=== PATIENT | female | born 1965 | race African-American/Black ===

== ENCOUNTER 2017-01-08 11:33 | Emergency (ER) | payer BC ==
--- NOTE | ~2017-01-08 | CR72 ---
[facility] A Service of [facility] & [facility] RADIOLOGY TEXT RESULTS PATIENT: MONTSE COLMENARES LOCATION: [facility] : 61 UNIT #: [id number] AGE: [address]: Modesta Dawson MD SEX: F ORDER DR: [id number] [facility] [address]. [place], [place] [address] [id number] E MR#: [id number] #: [id number] NAME: MONTSE COLMENARES : 1965 SEX: F STUDY DATE/TIME: 01/08/2017 13:50 UNIT: [facility] ROOM: STUDY DESCRIPTION: CR Chest Single View Portable Attending Physician: Modesta Dawson M.D. Referring Physician: Marquis Harding Aprn Ordering Physician: Modesta Dawson M.D. Primary Care Physician: Marquis Harding Aprn MEDICAL IMAGING REPORT This report is preliminary unless electronic signature is present EXAM AP portable chest dated 01/08/2017, COMPARISON 03/27/2015 HISTORY Shortness of breath beginning this morning. Bilateral shoulder pain. FINDINGS AP portable view is obtained. The cardiovascular configuration is stable and the lungs are clear. CONCLUSION Negative portable chest. Dictated by... Winston Lugo M.D. THIS IS AN ELECTRONICALLY VERIFIED REPORT Winston Lugo M.D. at 01/11/2017 9:18 AM MATEUS/xenia TD: 01/08/2017 16:06 JOB #: [id number] MEDICAL IMAGING REPORT Page 1 of 1 COPY
--- NOTE | ~2017-01-08 | CO ---
Unit #: [id number] #: [id number] Patient: MONTSE COLMENARES [id number] [address] [place], [place] [address] [id number] E MR#: [id number] NAME: MONTSE COLMENARES ROOM: Age: 51 Sex: F Admission Date: 01/08/2017 : 1965 Attending Physician: Modesta Dawson M.D. Primary Care Physician: Marquis Harding Aprn Consultation Date: 01/08/2017 CONSULTATION REPORT REASON FOR CONSULTATION Shoulder pain. HISTORY OF PRESENT ILLNESS This is a 51-year-old -Polish female with prior medical history of hypertension diagnosed about a year ago and chronic lower back pain. She denies any other medical history. Denies diabetes, high cholesterol, or a family history of premature coronary artery disease. She does smoke half pack per day for greater than 30 years. She presented to the ER with bilateral shoulder and scapular pain. States the pain started earlier in the morning when she returned home from her primary care visit. The pain started in her right shoulder. Described as burning and tingling, 10/10. It progressed into her left shoulder with numbness and tingling in her bilateral fingers and hands. She denies nausea, diaphoresis, or shortness of air with the pain. Denies chest pain, tightness, or pressure. PAST MEDICAL HISTORY 1. Hypertension. 2. Chronic lower back pain. 3. Tobacco abuse. PAST SURGICAL HISTORY 1. Tubal ligation. 2. . 3. Sweat gland surgery. SOCIAL HISTORY One half pack per day smoker x30 years. Drinks three to four beers on the weekends. 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 FAMILY HISTORY Denies a family history of premature coronary artery disease. ALLERGIES No known drug allergies. HOME MEDICATIONS 1. Norvasc 5 mg once a day. 2. Meloxicam. 3. Flexeril. REVIEW OF SYSTEMS Positive for numbness and tingling in her right hand. Otherwise negative except for what was stated in the HPI. Unit #: [id number] #: [id number] Patient: MONTSE COLMENARES PHYSICAL EXAMINATION VITAL SIGNS: Temperature 97.5, heart rate 86, respiratory rate 16, blood pressure 129/92. Height 70 inches, weight 89.8. GENERAL: Alert and oriented x3. A 51-year-old -Polish female in no acute distress. HEENT: Head is atraumatic, normocephalic. Pupils are equal and round. Mucous membranes are moist. NECK: Supple. Trachea is midline. Negative for JVD. LUNGS: Clear to auscultation. Nonlabored respirations. CARDIOVASCULAR: S1, S2. Regular rate and rhythm. No murmurs, rubs, or gallops auscultated. ABDOMEN: Soft, nontender, nondistended. EXTREMITIES: Pulses are palpable. No pedal edema. No cyanosis. NEUROLOGIC: Answers questions appropriately. Moves all extremities equally and follows commands without difficulty. DIAGNOSTIC STUDIES LABORATORY: Sodium 135, potassium 3.5, chloride 103, BUN 14, creatinine 0.6, glucose 96. Hemoglobin 12.8, hematocrit 38.6, white blood cell count 10.2, platelets 308,000. AST 24, ALT 20, alkaline phosphatase 109. PT 10.7, INR 1. Point of care troponin less than 0.05. IMAGING: Chest x-ray: No active disease. CARDIOVASCULAR: EKG shows normal sinus rhythm. ASSESSMENT 1. Probable cervical spine C5-C6 nerve root compression. 2. Hypertension. 3. Nicotine abuse. PLAN 1. Anti-inflammatory medications, continue meloxicam. 2. Smoking cessation. 3. Exercise Cardiolite stress test as an outpatient. 4. Recommend cervical MRI. 5. Patient advised to stay off work until January 12, 2017. Thank you for asking us to see this patient. We appreciate the consult. Dictated by... Nga Sepulveda APRN for Willie Wu M.D. Arcenio TD: 01/09/2017 11:41 JOB #: [id number] Unit #: [id number] #: [id number] Patient: MONTSE COLMENARES CONSULTATION REPORT Page 1 of 1 X X CONSULTATION REPORT
--- NOTE | ~2017-01-08 | EKG ---
PATIENT: MONTSE COLMENARES UNIT #: [id number] Ventricular Rate: 87 BPM Atrial Rate: 87 BPM P-R Interval: 140 ms QRS Duration: 80 ms Q-T Interval: 390 ms QTC Calculation(Bezet): 469 ms P Le Center: 64 degrees Calculated R Le Center: 85 degrees Calculated T Le Center: 30 degrees Diagnosis Line: Normal sinus rhythm Diagnosis Line: Biatrial enlargement Diagnosis Line: Septal infarct , age undetermined Diagnosis Line: Abnormal ECG Diagnosis Line: No previous ECGs available Diagnosis Line: Confirmed by MAX LIU MD ([id number]) on 01/08/2017 Diagnosis Line: 6:58:51 PM INTERPRETING MD: NOE MATHIS
[~2017-01-08 11:33] MED LIST: AZITHROMYCIN250 MG PO; BENADRYL25 M1 PO; DERMACORT1 GM EXT; FLEXERIL10 MG PO; IBUPROFEN800 MG PO; LORTAB 5/500 TA1 TA1 PO; MEDROL DOSEPAK4 MG PO; MOUTHWASH180 ML MM; STERAPRED5 MG/DOSE1 PO; VOLTAREN50 MG PO; VOLTAREN75 MG PO; ZANTAC150 MG PO
[2017-01-08 14:14] LABS: POC - CKMB <1.0 ng/mL (0.0-7.9); POC - TROPONIN <0.05 ng/mL (<=0.05)
[2017-01-08 14:51] LABS: BASOPHIL# 0.1 X10e3 (0-0.3); BASOPHIL% 0.9 % (0-2.5); EOSINOPHIL# 0.1 X10e3 (0-0.7); EOSINOPHIL% 1.2 % (0.0-7.0); HEMATOCRIT 38.6 % (35.0-45.0); HEMOGLOBIN 12.8 gm/dL (12.0-16.0); LYMPHOCYTE# 2.6 X10e3 (1.0-3.5); LYMPHOCYTE% 25.2 % (17.0-45.0); MEAN CELL VOLUME 87.3 FL (83-96); MEAN CORPUSCULAR HGB CONC 33.2 g/dL (30-36); MEAN PLATELET VOLUME 8.3 FL (6.5-11.5); MONOCYTE# 0.7 X10e3 (0-1.0); MONOCYTE% 6.5 % (3.0-12.0); NEUTROPHIL# 6.8 X10e3 (1.5-7.1); NEUTROPHIL% 66.2 % (40-75); PLATELET COUNT 308 X10e3 (140-420); RED BLOOD COUNT 4.42 X10e (3.90-5.30); RED CELL DISTRIBUTION WIDTH 14.4 % (11.0-15.5); WHITE BLOOD COUNT 10.2 X10e3 (4.0-10.5)
[2017-01-08 14:56] LABS: DIFF IND NO
[2017-01-08 15:04] LABS: PROTHROMBIN TIME (PATIENT) 10.7 SECONDS (9.6-11.5)
[2017-01-08 15:14] LABS: ALBUMIN SERUM 4.1 g/dL (3.5-5.0); ALKALINE PHOSPHATASE 109 U/L (32-92); ALT (SGPT) 20 U/L (10-40); AST (SGOT) 24 U/L (10-42); BILIRUBIN,TOTAL 0.4 mg/dL (0.2-2.0); BLOOD UREA NITROGEN 14 mg/dL (9-23); BUN/CREATININE RATIO 23.33; CALCIUM SERUM 8.9 mg/dL (8.4-10.2); CARBON DIOXIDE 22 mmol/L (22-31); CHLORIDE 103 mmol/L (100-111); CREATININE SERUM 0.6 mg/dL (0.6-1.4); GLOM FILT RATE Estimated 120.6 mL/min (>60); GLUCOSE FASTING 96 mg/dL (70-110); POTASSIUM 3.5 mmol/L (3.5-5.1); PROTEIN TOTAL SERUM 8.5 g/dL (6.0-8.3); SODIUM 135 mmol/L (135-145)
[2017-01-08 15:15] LABS: BILIRUBIN, DIRECT <0.1 mg/dL (0.0-0.2); BILIRUBIN,INDIRECT 0.3 mg/dL (0.0-0.9)
[2017-01-08 15:55] LABS: POC - CKMB <1.0 ng/mL (0.0-7.9); POC - TROPONIN <0.05 ng/mL (<=0.05)
== END 2017-01-08 18:34 | disposition home or self-care (01) ==
LOC: CFTX 11:33 → CED 11:33
PROVIDERS: Emergency Medicine
DX: M54.6 Pain in thoracic spine (principal); I10 Essential (primary) hypertension
CPT/HCPCS: 36415; 71010; 80048; 80076; 82553; 84484; 85025; 85610; 93005; 99283

== ENCOUNTER → 2017-01-09 | Outpatient (CLI) | payer BC ==
--- NOTE | ~2017-01-09 | ST ---
Unit #: [id number] #: [id number] Patient: MONTSE COLMENARES [id number] [address] [address] [id number] O MR#: [id number] NAME: MONTSE COLMENARES : 1965 SEX: F STUDY DATE/TIME: 01/09/2017 UNIT: [facility] ROOM: STUDY DESCRIPTION: Attending Physician: Willie Wu M.D. Referring Physician: Willie Wu M.D. Primary Care Physician: Marquis Harding Aprn CARDIOLOGY REPORT EXAM EKG portion of exercise Cardiolite stress test. REASON FOR EXAMINATION Bilateral shoulder pain and numbness. FINDINGS Baseline EKG shows normal sinus rhythm with a rate of 83 beats per minute. PROCEDURE The patient exercised according to Shahriar protocol for 3 minutes and 32 seconds. She achieved a work level of 4.6 METs. Resting heart rate was 83 beats per minute. Maximal heart rate was 146 beats per minute, representing an 87% of age max predicted heart rate. The patient's symptoms were shortness of breath and fatigue. No arrhythmias were noted. The test was stopped due to achieving heart rate. IMPRESSION 1. There were no ST-T wave changes. 2. The patient had shortness of breath and fatigue that resolved in recovery. 3. No arrhythmias. 4. Please correlate with Cardiolite imaging. Dictated by... Pavel Taylor M.D. AM/ TD: 01/09/2017 14:00 JOB #: [id number] Unit #: [id number] #: [id number] Patient: MONTSE COLMENARES CARDIOLOGY REPORT Page 1 of 1 X Chelo Sheth APRN CARDIOLOGY REPORT
--- NOTE | ~2017-01-09 | TH ---
Unit #: [id number] #: [id number] Patient: MONTSE COLMENARES [id number] [facility]. [address] [address] [id number] O MR#: [id number] NAME: MONTSE COLMENARES : 1965 SEX: F STUDY DATE/TIME: 01/09/2017 UNIT: [facility] ROOM: STUDY DESCRIPTION: Exercise stress test - Nuclear Attending Physician: Willie Wu M.D. Referring Physician: Willie Wu M.D. Primary Care Physician: Marquis Harding Aprn CARDIOLOGY REPORT PROCEDURE PERFORMED Exercise Cardiolite stress test - Nuclear portion. PROCEDURE Using technetium 99m-labeled Cardiolite, rest and stress SPECT images were obtained. Multiple SPECT images were obtained in various views, including horizontal and vertical long axis and short axis views of the left ventricle. Images were obtained by gated SPECT method. The patient was administered 9.63 mCi of Cardiolite at rest. The patient was administered 30.3 mCi of Cardiolite at peak exercise. Total exercise time is 3 minutes and 32 seconds. On the stress images, there is a small area of moderately decreased tracer uptake activity in the anteroapical wall. The rest images also show a small area of moderately decreased tracer uptake activity anteroapically. Comparing the rest and stress images, there is a small area of predominantly fixed defect seen anteroapically; cannot rule out infarct versus soft tissue artifact. The left ventricular ejection fraction is calculated to be 74%. There is no focal wall motion abnormality seen. The left ventricular size is small. CONCLUSION 1. There is a small area of predominantly fixed defect seen anteroapically; cannot rule out old infarct versus soft tissue artifact. 2. No obvious stress-induced ischemia noted. 3. The left ventricular ejection fraction is calculated to be 74%. 4. There is no focal wall motion abnormality seen. 5. Technically limited study. It must be noted that the patient exercised for a total of only 3 minutes and 32 seconds. Clinical correlation is requested. Dictated by... Kodak Pierson TD: 01/09/2017 14:42 JOB #: [id number] Unit #: [id number] #: [id number] Patient: MONTSE COLMENARES CARDIOLOGY REPORT Page 1 of 1 X Karley Treviño MD <ELECTRONICALLY SIGNED> 02/21/17 [id number] CARDIOLOGY REPORT
--- NOTE | ~2017-01-09 | MR31 ---
[facility] A Service of [facility] & [facility] RADIOLOGY TEXT RESULTS PATIENT: MONTSE COLMENARES LOCATION: [facility] : 61 UNIT #: [id number] AGE: [address]: Willie Wu MD SEX: F ORDER DR: [id number] [facility] [address] [place], [place] [address] [id number] O MR#: [id number] Acc #: [id number] NAME: MONTSE COLMENARES : 1965 SEX: F STUDY DATE/TIME: 01/09/2017 10:09 UNIT: [facility] ROOM: STUDY DESCRIPTION: MR Cervical WWo Contrast Attending Physician: Willie Wu M.D. Referring Physician: Willie Wu M.D. Ordering Physician: Willie Wu M.D. Primary Care Physician: Marquis Harding Aprn MRI CENTER REPORT This report is preliminary unless electronic signature is present. EXAM MRI of the cervical spine with and without HISTORY Patient experienced neck pain and right arm numbness starting about 10:00 a.m. 01/08/2017 after an earlier doctors visit. The patient was evaluated in the emergency room and MRI of the cervical spine was ordered. Patient has a history of hypertension. There is no history of cancer or trauma. FINDINGS MRI of the cervical spine was performed prior to and following intravenous administration of 18 mL of MultiHance. MultiHance was given secondary to the presence of a cord lesion on the noncontrast imaging. There is no comparison MRI. The prior plain films series from 2009 is pending sikhism. Sagittal alignment is normal. Multilevel intervertebral disc desiccation noted with mild multilevel loss of intervertebral disc height. Also multilevel marrow endplate degenerative change predominantly type 2. There is no Chiari-I malformation. There is a focus of signal abnormality within the cervical cord at the level of C3-4. It is asymmetric to the right side and measures about 3.0 mm AP dimension, 6.0 mm ML dimension and 7.0 mm SI dimension. It is not associated with mass effect or pathologic enhancement. There is also not significant canal stenosis at this level. The lesion is therefore nonspecific. The lack of enhancement or mass effect weighs against an active process, but this could still be a now chronic demyelinating plaque or chronic lesion related to an episode of previous transverse myelitis. A less likely consideration is a low grade glioma. At this time, please correlate further clinically and at minimum I would recommend followup imaging over the long-term with and without contrast to assess for change. First followup study is to be obtained at [address] [facility] A Service of [facility] / [facility] RADIOLOGY TEXT RESULTS PATIENT: MONTSE COLMENARES LOCATION: [facility] : 61 UNIT #: [id number] AGE: [address]: Willie Wu MD SEX: F ORDER DR: At C2-3, minor posterior desiccated disc bulging without canal or foraminal compromise. At C3-4, minor posterior desiccated disc osteophyte complex and uncovertebral osteophyte formation asymmetric to the right. Mild effacement of the anterior thecal sac and [id number] right greater than left sided foraminal narrowing. At C4-5, minor concentric desiccated disc bulge and some right-sided uncovertebral osteophyte formation with [id number] right foraminal narrowing and mild effacement of the anterior thecal sac right of midline. At C5-6, mild concentric desiccated disc osteophyte complex with uncovertebral osteophyte formation more so to the right. Mild effacement of the anterior thecal sac, more so to the right. Approximately moderate foraminal narrowing bilaterally. At C6-7, mild left-sided foraminal narrowing. No canal stenosis. At C7-T1, no significant abnormality. IMPRESSION 1. There is a focus of signal abnormality within the right side of the cord centered at the level of C3-4. It is not associated with mass effect or enhancement. Please refer to the differential discussion above. At this time I would recommend further correlation with clinical findings and course. At minimum, followup imaging is recommended at 6 months with and without contrast reassess for stability. Please refer to the differential in the comment section. 2. There is multilevel disc desiccation and minor endplate spondylosis with some uncovertebral osteophyte formation. Patient. There is no significant canal stenosis but there is multilevel foraminal impingement present. See above. Dictated by... Zohreh Combs M.D. THIS IS AN ELECTRONICALLY VERIFIED REPORT Zohreh Combs M.D. at 01/09/2017 3:28 PM Reynaldo TD: 01/09/2017 14:28 JOB #: [id number] MRI CENTER REPORT Page 1 of 1 COPY
== END | disposition home or self-care (01) ==
LOC: CNUC 09:00 → CCAT 09:26 → CNUC 09:26
DX: R07.9 Chest pain, unspecified (principal); I10 Essential (primary) hypertension; M54.2 Cervicalgia; M47.892 Other spondylosis, cervical region
CPT/HCPCS: 72156; 78452; 93017; A9500; A9577